=== PATIENT | female | born 2000 | race Hispanic/Latino ===

== ENCOUNTER 2024-06-02 15:28 | Inpatient (IN) | payer OTHER ==
[~2024-06-02] VITALS: Ht 154.9 cm; Wt 86.2 kg
[2024-06-03 05:24] LABS: HEMATOCRIT 36.2 % (35.0-50.0); HEMOGLOBIN 11.4 g/dL (12.0-18.0); MCH 26.3 (27-36); MCHC 31.6 g/dl (30-36); MCV 83.2 fl (81-99); PLATELET COUNT 299 K/uL (140-440); RBC 4.34 M/ul (4.3-5.7)
[2024-06-03 05:29] VITALS: BP 138/86
[2024-06-03] MEDS ORDERED: ROPIVACAINE 0.2% 200 ML BAG ONE (05:32)
[2024-06-03] MEDS ORDERED: fentaNYL citrate 100 MCG/2 ML VIAL ONE (05:32)
[2024-06-03 05:40] LABS: SMEAR REVIEW BLOOD SEE COMMENTS
[2024-06-03 05:50] LABS: AMPHETAMINES, URINE NEGATIVE (NEGATIVE); BARBITURATES, URINE NEGATIVE (NEGATIVE); BENZODIAZEPINE, URINE NEGATIVE (NEGATIVE); BUPRENORPHINE, URINE NEGATIVE (NEGATIVE); CANNABINOID, URINE NEGATIVE (NEGATIVE); COCAINE, URINE NEGATIVE (NEGATIVE); ECSTASY, URINE NEGATIVE (NEGATIVE); FENTANYL, URINE NEGATIVE (NEGATIVE); METHADONE, URINE NEGATIVE (NEGATIVE); OPIATES, URINE NEGATIVE (NEGATIVE); OXYCODONE, URINE NEGATIVE (NEGATIVE); PHENCYCLIDINE, URINE NEGATIVE (NEGATIVE)
[2024-06-03 05:57] LABS: ABO O; ANTIBODY SCREEN NEGATIVE; RH POSITIVE
[2024-06-03] MEDS ORDERED: CALCIUM CARBONATE 500 MG CHEW PO PRN ×2 (06:00→13:45)
[2024-06-03] MEDS ORDERED: LACTATED RINGER'S 1,000 ML IV SCH (06:00)
[2024-06-03] MEDS ORDERED: OXYTOCIN/0.9 % SODIUM CHLORIDE 500 ML IV SCH ×2 (06:00→13:45)
[2024-06-03] MEDS ORDERED: MAGNESIUM HYDROXIDE/AL HYDROX 30 ML CUP PO PRN ×2 (06:00→13:45)
[2024-06-03] MEDS ORDERED: ePHEDrine sulfate 5 MG/ML SYRINGE IV PRN (06:15)
[2024-06-03] MEDS ORDERED: ROPIVACAINE 0.2% 200 ML BAG EPIDURAL SCH (06:15)
[2024-06-03] MEDS ORDERED: LACTATED RINGER'S 500 ML IV PRN (06:15)
[2024-06-03] MEDS ORDERED: LACTATED RINGER'S 2,000 ML IV ONE (06:15)
[2024-06-03 08:40] LABS: CREATININE, SERUM 0.6 mg/dL (0.55-1.02)
[2024-06-03 08:45] LABS: CREATININE, RANDOM URINE 94.26 mg/dL (NOT ESTABLISHED); PROTEIN/CREATININE RATIO 0.19 mg/mg (0.010-0.107)
[2024-06-03] MEDS ORDERED: LIDOCAINE 2% W/ EPI 1:200,000 20 ML SDV ONE (10:16)
[2024-06-03] MEDS ORDERED: IBUPROFEN 600 MG TAB PO PRN (13:45)
[2024-06-03] MEDS ORDERED: ACETAMINOPHEN 325 MG TAB PO PRN (13:45)
[2024-06-03] MEDS ORDERED: WITCH HAZEL/GLYCERIN 1 EA PAD TOP PRN (13:45)
[2024-06-03] MEDS ORDERED: BENZOCAINE 60 ML AEROSOL TOP PRN (13:45)
[2024-06-03] MEDS ORDERED: MAGNESIUM HYDROXIDE 30 ML UDC PO PRN (13:45)
[2024-06-03] MEDS ORDERED: HYDROCORTISONE ACETATE 25 MG SUPP PR PRN (13:45)
[2024-06-03] MEDS ORDERED: LIDOCAINE 2% VISCOUS 6 ML SYR TOP ONE ×2 (13:45)
[2024-06-03] MEDS ORDERED: SENNOSIDES/DOCUSATE 1 EA TAB PO SCH (21:00)
[2024-06-04] MEDS ORDERED: OXYTOCIN/0.9 % SODIUM CHLORIDE 500 ML IV SCH (07:00)
== END 2024-06-04 14:35 | disposition home or self-care (01) | DRG 807 ==
LOC: FBC 06-03 04:27
PROVIDERS: Advanced Practice Midwife; ADMIT Obstetrics & Gynecology; ATTEND Obstetrics & Gynecology
PROC: 10E0XZZ Delivery of Products of Conception, External Approach (ICD-10-PCS; principal; 2024-06-03)
PROC: 0KQM0ZZ Repair Perineum Muscle, Open Approach (ICD-10-PCS; 2024-06-03)
PROC: 10907ZC Drainage of Amniotic Fluid, Therapeutic from Products of Conception, Via Natural or Artificial Opening (ICD-10-PCS; 2024-06-03)
DX: O99.52 Diseases of the respiratory system complicating childbirth (principal); Z37.0 Single live birth; J45.909 Unspecified asthma, uncomplicated; O77.0 Labor and delivery complicated by meconium in amniotic fluid; Z3A.39 39 weeks gestation of pregnancy; O70.1 Second degree perineal laceration during delivery
CPT/HCPCS: 01960; 36415; 80307; 82553; 82565; 82570; 84156; 84450; 84460; 84520; 84550; 85027; 85060; 86850; 86900; 86901; A9270; J2795; J3010